=== PATIENT | female | born 1930 | race Caucasian/White ===

== ENCOUNTER 2018-12-31 16:12 | Emergency (ER) | payer OTHER ==
[~2018-12-31] VITALS: Ht 160 cm; Wt 45.4 kg
[2018-12-31 16:13] VITALS: Ht 160 cm; Wt 45.4 kg
[2018-12-31] MEDS ORDERED: LEVOXYL0.088 MG PO (16:38)
[2018-12-31] MEDS ORDERED: AMLODIPINE BES2.5 M1 PO (16:38)
[2018-12-31 16:51] LABS: BASOPHIL % 0.1 % (0-2); PLATELET COUNT 178 x10^3mcL (130-400)
[2018-12-31 16:52] LABS: RED CELL DISTRIBUTION WIDTH 16.5 % (11.5-14.5)
[2018-12-31 16:56] LABS: CALCIUM 8.1 mg/dL (8.5-10.1); CHLORIDE SERUM 109 mmol/L (98-107); CREATININE SERUM 1.5 mg/dL (0.6-1.0); GLUCOSE SERUM 151 mg/dL (74-106); POTASSIUM SERUM 3.3 mmol/L (3.5-5.1); SODIUM SERUM 142 mmol/L (136-145)
[2018-12-31 17:01] LABS: ALBUMIN 2.8 g/dL (3.4-5.0); ALKALINE PHOSPHATASE 53 U/L (46-116); ALT/SGPT 9 U/L (14-59); AST/SGOT 13 U/L (15-37); BILIRUBIN TOTAL 0.31 mg/dL (0.20-1.00); TOTAL PROTEIN, SERUM 6.1 g/dL (6.4-8.2)
[2018-12-31 20:28] VITALS: BP 156/69
== END 2018-12-31 20:28 | disposition home or self-care (01) ==
LOC: ED 16:12
DX: R55 Syncope and collapse (principal); R53.1 Weakness; I10 Essential (primary) hypertension
CPT/HCPCS: 82962; J7030; Q0092